=== PATIENT | female | born 1945 ===

== ENCOUNTER → 2020-02-27 11:08 | Outpatient (CLI) | payer MEDICARE, SELFPAY ==
--- NOTE | ~2020-02-27 | DEXA_ITS ---
Bone Density Report Name: Leia Ledesma Age: 74 Sex: Female Ethnicity: White Date of : 1945 Indication: postmenopausal; screening for osteoporosis; height loss; prior fracture; hysterectomy; Referring Provider: PHYSICIAN NOT ON STAFF Study: Bone densitometry was performed. Exam Date: February 27, 2020 Accession number: [id number] Bone Density: Region BMD T-score Z-score Classification AP Spine (L1-L4) 0.921 -1.1 1.2 Osteopenia Femoral Neck (Left) 0.695 -1.4 0.7 Osteopenia Total Hip (Left) 0.813 -1.1 0.7 Osteopenia Femoral Neck (Right) 0.709 -1.3 0.8 Osteopenia Total Hip (Right) 0.795 -1.2 0.5 Osteopenia Total Hip Mean 0.804 -1.2 0.6 Osteopenia World Health Organization criteria for BMD impression classify patients as: Normal (T-score at or above -1.0), Osteopenia (T-score between -1.0 and -2.5), or Osteoporosis (T-score at or below -2.5). 10-year Fracture Risk(1): Major Osteoporotic Fracture 17% Hip Fracture 4.5% Reported Risk Factors: [place] (), Neck BMD=0.695, BMI=28.3, previous fracture, smoking (1) FRAX(R) Version 3.08. Fracture probability calculated for an untreated patient. Fracture probability may be lower if the patient has received treatment. Clinical Information Provided by Patient: Has had a low trauma fracture Smokes Has used the following medications: Vitamin D, Calcium, MTV Has the following medical conditions: Hysterectomy Patient maximum height was 65.75 Menopause Age: 28 No regular weight bearing exercise Drinks caffeinated beverages Onset of menses at age 13 Number of children 4 Impression: The patient has low bone mass, based on the Left Femoral Neck T-score. The patient has an estimated ten-year risk of hip fracture of 4.5% and an estimated ten-year risk of major fracture of 17%, based on the WHO FRAX algorithm. The patient has risk factors, including: smoking, previous fracture. Discussion: BONE DENSITY IS LOW AT ONE OR MORE SKELETAL SITES. THE PATIENT'S BMD AND CLINICAL RISK FACTORS CONTRIBUTE TO THIS PATIENT'S INCREASED RISK OF FRACTURE. This patient's lowest T-score is low at one or more skeletal sites. It meets the World Health Organization's (WHO) criteria for ?low bone mass? (T-score between -1.0 and -2.5). The patient's 10-year risk of hip fracture as calculated by FRAX exceeds the threshold where pharmacological therapy is recommended by the National Osteoporosis Foundation (NOF). However, all treatment decisions require clinical judgment and consideration of individual patient factors, including patient preferences, comorbidities, previous drug use, risk factors not captured in the FRAX model (e.g., frailty, falls, vitamin D deficiency, increased bone turnover, interval significant decline in bone density) and possible under or ov
--- NOTE | ~2020-02-27 | CT_ITS ---
EXAMINATION: CT lung screening DATE: 02/27/2020 12:13 INDICATION: Personal history of tobacco dependence. Lung cancer screening. TECHNIQUE: Computed tomography (CT) of the chest was performed without intravenous contrast. The dose -length product was 124.05 mGy-cm. Automated exposure control and iterative reconstruction technique were employed. COMPARISON: CT dated 12/28/2018 FINDINGS: There is atherosclerosis. No significant pleural or pericardial effusion. No thoracic lymph adenopathy. Heart size is normal. Stable 2.4 cm left adrenal adenoma. Stable small bilateral pulmonar y nodules measuring up to 4 mm with upper lobe preference. There are a few small calcified granulomas in the lung parenchyma. No new pulmonary nodules or masses. Mild thoracic spondylosis. IMPRESSION: 1. Lung-RADS category 2: Benign appearance or behavior. Continue annual screening with noncontrast lo w-dose chest CT in 12 months. Reviewed, dictated and finalized at location B. LINE DRAGLINE OPERATOR IMPRESSION: 1. Lung-RADS category 2: Benign appearance or behavior. Continue annual screeni ng with noncontrast low-dose chest CT in 12 months.
--- NOTE | ~2020-02-27 | MM_ITS ---
EXAMINATION: MM screening ramos BI w carri HISTORY: Screening mammogram TECHNIQUE: Craniocaudal and mediolateral oblique 3-D tomosynthesis images were obtained and synthetic 2-D images were generated. CAD analysis was submitted and interpreted. COMPARISON: No prior mammogram is available for comparison at this institution. BREAST PARENCHYMAL COMPOSITION: The breasts are almost entirely fatty. FINDINGS: There is no evidence of suspicious mass, calcification, or architectural distortion to sugg est malignancy in either breast. There has been no suspicious interval change. IMPRESSION: 1. No mammographic evidence of malignancy. 2. Recommend routine screening mammography in one year. BI-RADS Category 1: Negative Reviewed, dictated and finalized at location A. T AND PEDIATRIC NEUROLOGIST
== END ==
DX: Z12.31 Encounter for screening mammogram for malignant neoplasm of breast (principal); Z12.2 Encounter for screening for malignant neoplasm of respiratory organs; F17.210 Nicotine dependence, cigarettes, uncomplicated; M85.89 Other specified disorders of bone density and structure, multiple sites; M85.852 Other specified disorders of bone density and structure, left thigh; M85.851 Other specified disorders of bone density and structure, right thigh
CPT/HCPCS: 77063; 77067; 77080; G0297

== ENCOUNTER → 2021-04-15 09:55 | Outpatient (CLI) | payer MEDICARE, SELFPAY ==
--- NOTE | ~2021-04-15 | CT_ITS ---
EXAMINATION: CT lung screening DATE: 04/15/2021 10:58 INDICATION: TOBACCO ABUSE TECHNIQUE: Computed tomography (CT) of the chest was performed without intravenous contrast. Addition al 3D reconstructions utilizing coronal maximum intensity projection (MIP) were performed. Automated exposure control and iterative reconstruction technique were employed. The dose-length product was 98 .67 mGy-cm. COMPARISON: 02/27/2020 FINDINGS: A who small calcified nodules in the right upper and bilateral lower lobes along with calcified media stinal lymph nodes and multiple scattered splenic calcifications consistent with old granulomatous di sease. No significant change in a couple 3 mm nodules in the posterior segment of the right upper lob e., Also unchanged 2 to 3 mm nodule along the right minor and left major fissures likely representing an intrafissural lymph nodes. No new or enlarging pulmonary nodules, pneumonia, pulmonary edema or p leural effusion. Heart size is normal. Atherosclerotic coronary artery calcific location. Aortic valv e calcification. No pericardial effusion. Thoracic aorta is normal in caliber. No pathologically enla rged thoracic lymphadenopathy. Cholecystectomy clips at the gallbladder fossa. Severe lower cervical and moderate thoracic spondylosis. Chronic appearing mild anterior wedging at T11 and T12. IMPRESSION: 1. Lung-RADS category 2: Benign appearance or behavior. Continue annual screening with noncontrast lo w-dose chest CT in 12 months. Reviewed, dictated and finalized at location A. CONCESSION MANAGER IMPRESSION: 1. Lung-RADS category 2: Benign appearance or behavior. Continue annual screeni ng with noncontrast low-dose chest CT in 12 months.
--- NOTE | ~2021-04-15 | MM_ITS ---
EXAMINATION: MM screening ramos BI w carri HISTORY: Screening TECHNIQUE: Craniocaudal and mediolateral oblique 3-D tomosynthesis images were obtained and synthetic 2-D images were generated. CAD analysis was submitted and interpreted. COMPARISON: 02/27/2020 BREAST PARENCHYMAL COMPOSITION: There are scattered areas of fibroglandular density. FINDINGS: There is no evidence of suspicious mass, calcification, or architectural distortion to sugg est malignancy in either breast. There has been no suspicious interval change. IMPRESSION: 1. No mammographic evidence of malignancy. 2. Recommend routine screening mammography in one year. BI-RADS Category 1: Negative Reviewed, dictated and finalized at location A. ECTOR BOOTH OPERATOR
== END ==
DX: Z12.31 Encounter for screening mammogram for malignant neoplasm of breast (principal); Z12.2 Encounter for screening for malignant neoplasm of respiratory organs; Z87.891 Personal history of nicotine dependence
CPT/HCPCS: 71271; 77063; 77067

== ENCOUNTER 2021-06-23 08:14 | Outpatient (CLI) | payer MEDICARE, SELFPAY ==
--- NOTE | ~2021-06-23 | US_ITS ---
EXAMINATION: US art doppler w press LE BI DATE: 06/23/2021 09:24 INDICATION: Peripheral vascular disease risk factors of hyperlipidemia, diabetes and smoking presenti ng with cold right toes. TECHNIQUE: Segmental pressures and plethysmographic and Doppler waveforms of the brachial and lower e xtremity arteries were obtained. COMPARISON: None. FINDINGS: Right and left brachial artery pressures of 115 mm Hg and 122 mm Hg, respectively, are concordant (no rmal difference <= 30 mmHg). The right and left high-thigh pressure indices are 1.17 and 1.25, respec tively (normal > 1.2). The right ankle-brachial index (IMANI) is 0.94 (normal >= 0.9-1). The right great toe-brachial index (T BI) is 0.05 (normal >= 0.6-0.8). The right lower extremity segmental pressure gradients are increased between the right above and [id number] popliteal arteries relative to the corresponding arteries in the contralateral left lower limb (normal gradients <= 20-30 mmHg between adjacent levels on the same leg or the same levels on the two legs). Arterial waveforms are biphasic with brisk systolic ups trokes throughout the arteries of the right lower limb. The left IMANI is 1.11. The left TBI is 0.30. The left lower extremity segmental pressure gradients are increased between the left dorsalis pedis artery and the [id number] popliteal artery. Arterial w aveforms are biphasic with brisk systolic upstrokes throughout the arteries of the left lower limb. IMPRESSION: 1. Arterial occlusive disease to the bilateral lower limbs which may be primarily peripheral below th e level of the ankles with borderline right and normal left ABIs but severely decreased right and mod erate to severely decreased left TBIs. Reviewed, dictated and finalized at location A. IMPRESSION: 1. Arterial occlusive disease to the bilateral lower limbs which may be primari ly peripheral below the level of the ankles with borderline right and normal le ft ABIs but severely decreased right and moderate to severely decreased left TB Is.
== END 2021-06-23 08:15 | disposition home or self-care (01) ==
DX: E78.5 Hyperlipidemia, unspecified (principal); I73.9 Peripheral vascular disease, unspecified
CPT/HCPCS: 93923